=== PATIENT | female | born 1990 | race American Indian/Alaskan Native ===

== ENCOUNTER 2019-02-17 20:27 | Emergency (ER) | payer BC, MEDICAID ==
--- NOTE | 2019-02-17 21:37 | Event Note ---
ED Screening Note ED Screening Note: states she has pain in the epigastrium and chest that began today intermittent feels like a pressure no N/V/d no fever no SOB no cough LNMP: 02/13/19, tubal ligation no PMHx no allergies to meds This initial assessment/diagnostic orders/clinical plan/treatment(s) is/are subject to change based on patients health status, clinical progression and re- assessment by fellow clinical providers in the ED. Further treatment and workup at subsequent clinical providers discretion. Patient/guardian urged not to elope from the ED as their condition may be serious if not clinically assessed and managed. Initial orders include: CXR
[2019-02-17] MEDS ORDERED: ASPIRIN 325 MG TAB PO ONE (22:32)
--- NOTE | 2019-02-17 22:41 | XRay Report ---
ABDOMEN 3 VIEW(S) INDICATION: Chest and abdominal pain. Dyspnea. COMPARISON: None available. FINDINGS: Bowel gas pattern: No significant abnormality. Free air: None seen. Stones: None seen. Chest: No acute findings. Additional Findings: No additional significant findings. IMPRESSION: No significant abnormality of the abdomen. Signer Name: Mayco Way MD Signed: 02/17/2019 10:36 PM Workstation Name: [id number]
[2019-02-18 00:10] LABS: Basophils % (Auto) 0.5 % (0.0-1.8); Eosinophils % (Auto) 1.7 % (0.0-4.3); Hematocrit 27.7 % (30.3-42.9); Hemoglobin 9.5 gm/dl (10.1-14.3); Lymphocytes # (Auto) 1.2 K/mm3 (1.2-5.4); Lymphocytes % (Auto) 40.4 % (13.4-35.0); Mean Corpuscular HGB Conc 34 % (30-34); Mean Corpuscular Volume 88 fl (79-97); Monocytes # (Auto) 0.2 K/mm3 (0.0-0.8); Monocytes % (Auto) 7.2 % (0.0-7.3); Platelet Count 240 K/mm3 (140-440); Red Blood Count 3.15 M/mm3 (3.65-5.03); Red Cell Distribution Width 13.3 % (13.2-15.2)
[2019-02-18 00:13] LABS: INR 1.04 (0.87-1.13)
[2019-02-18 00:14] LABS: Partial Thromboplastin Time 30.1 Sec. (24.2-36.6)
[2019-02-18 00:27] LABS: Alanine Aminotransferase 627 units/L (7-56); Albumin 3.8 g/dL (3.9-5); BUN/Creatinine Ratio 23; Blood Urea Nitrogen 9 mg/dL (7-17); Calcium 8.7 mg/dL (8.4-10.2); Hemolysis Index 0
--- NOTE | 2019-02-18 02:11 | Cat Scan Report ---
CTA CHEST WITH IV CONTRAST INDICATION: Chest pain. Shortness of breath. TECHNIQUE: Axial CT images were obtained through the chest after injection of 100 MLO Omnipaque 350 IV contrast. 3 plane MIP reconstructions were produced. All CT scans at this location are performed using CT dose reduction for ALARA by means of automated exposure control. COMPARISON: Acute abdominal series from 02/17/2019. FINDINGS: PULMONARY ARTERIES: Well-opacified without distinct thromboemboli. AORTA AND ARTERIES: No significant abnormality. MEDIASTINUM: No significant abnormality of the heart or other mediastinal structures. LUNGS: There is mild left lower lobe atelectasis. The lungs are otherwise clear. No pneumothorax or p leural effusion. ADDITIONAL FINDINGS: None. UPPER ABDOMEN: There is moderate to severe left hydroureteronephrosis without visualization of an obs tructive stone or mass. A simple appearing right lower renal pole cyst measures 9 mm. BONES: No significant osseous abnormality. IMPRESSION: 1. No CT evidence of a pulmonary artery thromboembolism or other acute abnormality of the chest. 2. Partially visualized moderate to severe left hydroureteronephrosis without a clear etiology. Signer Name: Mayco Way MD Signed: 02/18/2019 2:07 AM Workstation Name: [email or web address]
--- NOTE | 2019-02-18 03:13 | Emergency Department Report ---
ED Chest Pain HPI - General Chief Complaint: Chest Pain Stated Complaint: CHEST PAIN & TIGHTENING/EMELIA Time Seen by Provider: 02/17/19 21:35 Source: patient Mode of arrival: Ambulatory Limitations: No Limitations - History of Present Illness Initial Comments: Patient is a 28-year-old female with no past medical history who is 10 weeks presents to the ED with compound of acute onset persistent intermittent sharp substernal chest pain for the last 12 hours. Patient states that she has had 3 major episodes of substernal chest pain that lasted about 15 minutes which resolved momentarily. Patient states that the pain when present appears to radiate to her mid posterior thoracic area or epigastric area. Patient also complaints of one episode of nausea and vomiting. Patient denies shortness of breath, dizziness, abdominal pain, palpitations, syncope, neck pain, dysuria, urinary frequency and urgency, hematuria, vaginal bleeding, vaginal discharge, fever, chills, headache or diarrhea and diaphoresis. MD Complaint: chest pain (substernal intermittent chest pain) -: Sudden, hour(s) (12) Onset: during rest Pain Location: substernal Pain Radiation: back (mid-posterior thoracic area), abdomen (eoigastric area) Severity: severe Severity scale (0 -10): 7 Quality: aching, sharp Consistency: intermittent Improves With: medication-other (NSAIDs) Worsens With: nothing Context: recent surgery (10 weeks ago had and BTL) re: nausea, vomting. denies: diaphoresis, dyspnea, sense of impending doom, other Other Symptoms: denies: cough, fever, syncope, rash, acid taste in mouth, leg swelling, palpitations, burping, other Treatments Prior to Arrival: other (Aleve) Aspirin use within the Past 7 Days: (0) No - Related Data On Oral Contraceptives: No Previous Rx's Medication Instructions Recorded Last Taken Type levoFLOXacin [Levaquin TAB] 500 mg PO QDAY #5 tablet 08/24/15 Unknown Rx Famotidine [Pepcid] 20 mg PO Q12H #60 tablet 02/18/19 Unknown Rx Ketorolac [Toradol] 10 mg PO Q8H PRN #20 tablet 02/18/19 Unknown Rx Ondansetron [Zofran Odt] 4 mg PO Q6HR PRN #20 tab.rapdis 02/18/19 Unknown Rx Allergies Allergy/AdvReac Type Severity Reaction Status Date / Time No Known Allergies Allergy Unverified 08/06/15 15:47 Heart Score - HEART Score History: Slightly suspicious EKG: Normal Age: < 45 Risk factors: No known risk factors Troponin: < normal limit HEART Score: 0 - Critical Actions Critical Actions: 0-3 pts:0.9-1.7%risk of adverse cardiac event.Candidate for discharge ED Review of Systems ROS: Stated complaint: CHEST PAIN & TIGHTENING/EMELIA Other details as noted in HPI Constitutional: denies: chills, fever Eyes: denies: eye pain, eye discharge, vision change ENT: denies: ear pain, throat pain Respiratory: denies: cough, shortness of breath, SOB with exertion, SOB at rest, wheezing Cardiovascular: chest pain (substernal ). denies: palpitations, dyspnea on exertion, syncope, paroxysmal nocturnal dyspnea Endocrine: no symptoms reported Gastrointestinal: nausea, vomiting. denies: abdominal pain, diarrhea, hematochezia Genitourinary: denies: urgency, dysuria, frequency, hematuria, discharge Musculoskeletal: denies: back pain, joint swelling, arthralgia, myalgia Skin: denies: rash, lesions Neurological: denies: headache, weakness, paresthesias Psychiatric: denies: anxiety, depression Hematological/Lymphatic: denies: easy bleeding, easy bruising ED Past Medical Hx - Past Medical History Previous Medical History?: No Hx Hypertension: No Hx Congestive Heart Failure: No Hx Diabetes: No Hx Renal Disease: No Hx Asthma: No Hx COPD: No - Surgical History Additional Surgical History: Tubal Ligation - Social History Smoking Status: Never Smoker Substance Use Type: None - Medications Home Medications: Home Medications Medication Instructions Recorded Confirmed Last Taken Type levoFLOXacin [Levaquin TAB] 500 mg PO QDAY #5 tablet 08/24/15 Unknown Rx Famotidine [Pepcid] 20 mg PO Q12H #60 tablet 02/18/19 Unknown Rx Ketorolac [Toradol] 10 mg PO Q8H PRN #20 tablet 02/18/19 Unknown Rx Ondansetron [Zofran Odt] 4 mg PO Q6HR PRN #20 tab.rapdis 02/18/19 Unknown Rx ED Physical Exam - General Limitations: No Limitations General appearance: alert, in no apparent distress - Head Head exam: Present: atraumatic, normocephalic, normal inspection - Eye Eye exam: Present: normal appearance, PERRL, EOMI. Absent: scleral icterus, conjunctival injection, periorbital swelling, periorbital tenderness Pupils: Present: normal accommodation - ENT ENT exam: Present: normal exam, normal orophraynx, mucous membranes moist, TM's normal bilaterally, normal external ear exam - Neck Neck exam: Present: normal inspection, full ROM - Respiratory Respiratory exam: Present: normal lung sounds bilaterally, chest wall tenderness (palpable diffuse chest wall tenderness). Absent: respiratory distress, whe ezes, rales, stridor - Cardiovascular Cardiovascular Exam: Present: regular rate, normal rhythm, normal heart sounds. Absent: systolic murmur, diastolic murmur, rubs, gallop - GI/Abdominal GI/Abdominal exam: Present: soft, normal bowel sounds. Absent: distended, tenderness, rebound, hyperactive bowel sounds, hypoactive bowel sounds, organomegaly, mass - Extremities Exam Extremities exam: Present: normal inspection, full ROM, normal capillary refill - Back Exam Back exam: Present: normal inspection, full ROM. Absent: tenderness, muscle spasm, paraspinal tenderness - Neurological Exam Neurological exam: Present: alert, oriented X3, CN II-XII intact, normal gait, reflexes normal - Psychiatric Psychiatric exam: Present: normal affect, normal mood - Skin Skin exam: Present: warm, dry, intact, normal color. Absent: rash ED Course Vital Signs 02/17/19 02/17/19 20:35 20:36 Temperature 98.4 F Pulse Rate 83 Respiratory 18 Rate Blood Pressure 102/55 O2 Sat by Pulse 97 Oximetry DARRION score - Darrion Score Age > 65: (0) No Aspirin use within the Past 7 Days: (0) No 3 or more CAD Risk Factors: (0) No 2 or more Angina events in past 24 hrs: (0) No Known CAD with more than 50% Stenosis: (0) No Elevated Cardiac Markers: (0) No ST Deviation Greater than 0.5mm: (0) No DARRION Score: 0 ED Medical Decision Making - Lab Data Result diagrams: 02/17/19 23:50 02/17/19 23:50 - Radiology Data Radiology results: report reviewed, image reviewed Findings [facility] [address] [place] [address] Ultrasound Report Signed Patient: CARO WHITE MR#: [id number] : 1990 Acct:[id number] Age/Sex: 28 / F ADM Date: 02/17/19 Loc: ED Attending Dr: Ordering Physician: SCOTT CHAMBERLAIN Date of Service: 02/18/19 Procedure(s): US abdomen limited Accession Number(s): [id number] cc: SCOTT CHAMBERLAIN ULTRASOUND ABDOMEN, LIMITED (RIGHT UPPER QUADRANT) INDICATION: elevated LFTs. COMPARISON: None available. FINDINGS: Pancreas: Visualized portion shows no significant abnormality. Liver: Normal in size with generalized increased echotexture. No additional significant abnormality. Gallbladder: Numerous stones are seen without an additional significant abnormality. Sonographic Flowers's sign: Negative. Bile ducts: No significant abnormality. Common Bile Duct measures 2 mm. Free fluid: None. Additional Findings: None. IMPRESSION: 1. Cholelithiasis without sonographic evidence of acute cholecystitis. 2. Increased hepatic echotexture is most commonly seen in the setting of steatosis. Signer Name: Mayco Way MD Signed: 02/18/2019 3:28 AM Workstation Name: [id number] Transcribed By: [place] Dictated By: Mayco Way MD Electronically Authenticated By: Mayco Way MD Signed Date/Time: 02/18/19327 DD/ 5 TD/TT: Findings [facility] [address] [place] [address] Cat Scan Report Signed Patient: CARO WHITE MR#: [id number] : 1990 Acct:[id number] Age/Sex: 28 / F ADM Date: 02/17/19 Loc: ED Attending Dr: Ordering Physician: SCOTT CHAMBERLAIN Date of Service: 02/18/19 Procedure(s): CT angio chest Accession Number(s): [id number] cc: SCOTT CHAMBERLAIN CTA CHEST WITH IV CONTRAST INDICATION: Chest pain. Shortness of breath. TECHNIQUE: Axial CT images were obtained through the chest after injection of 100 MLO Omnipaque 350 IV contrast. 3 plane MIP reconstructions were produced. All CT scans at this location are performed using CT dose reduction for ALARA by means of automated exposure control. COMPARISON: Acute abdominal series from 02/17/2019. FINDINGS: PULMONARY ARTERIES: Well-opacified without distinct thromboemboli. AORTA AND ARTERIES: No significant abnormality. MEDIASTINUM: No significant abnormality of the heart or other mediastinal str uctures. LUNGS: There is mild left lower lobe atelectasis. The lungs are otherwise clear. No pneumothorax or pleural effusion. ADDITIONAL FINDINGS: None. UPPER ABDOMEN: There is moderate to severe left hydroureteronephrosis without visualization of an obstructive stone or mass. A simple appearing right lower renal pole cyst measures 9 mm. BONES: No significant osseous abnormality. IMPRESSION: 1. No CT evidence of a pulmonary artery thromboembolism or other acute abnormality of the chest. 2. Partially visualized moderate to severe left hydroureteronephrosis without a clear etiology. Signer Name: Mayco Way MD Signed: 02/18/2019 2:07 AM Workstation Name: [id number] Transcribed By: MN Dictated By: Mayco Way MD Electronically Authenticated By: Mayco Way MD Signed Date/Time: 02/18/19206 DD/ 1 TD/TT: - Medical Decision Making This is a 28-year-old female who presented to the ED with chest pain that radiates to the mid posterior thoracic area and epigastric area with nausea and vomiting for 12 hours intermittent. In the ED, patient is alert and oriented 3 and is not in distress. Lab test results were reviewed and show leukopenia of 2.9, elevated LFTs, with AST of 1325, and ALT of 627 with alkaline phosphatase of 150; and a d-dimer of 562.39. Chest x-ray shows no acute pulmonary commodities. Rezulin lab test results including urinalysis are nonactionable including troponin levels. CTA chest shows no evidence of PE. Gallbladder ultrasound showed cholelithiasis without sonographic evidence of cholecystitis. Patient was treated for pain and on reevaluation, patient's pain is well controlled with medications. Patient was discharged home on medications for pain and given a referral to the general surgeon health information manager Dr. Burton, for follow- up. Patient was advised to contact Dr. Burton's office first thing in the morning to schedule follow-up appointment for her cholelithiasis. Patient was otherwise advised return to the ED immediately if symptoms get worse. - Differential Diagnosis PE; CAD; Pneumonia; Gallstones; cholecystitis; GERD Critical care attestation.: If time is entered above; I have spent that time in minutes in the direct care of this critically ill patient, excluding procedure time. ED Disposition Clinical Impression: Substernal chest pain, Nausea and vomiting in adult, Acute epigastric pain, Cholelithiasis without cholecystitis Disposition: TO HOME OR SELFCARE Is pt being admited?: No Does the pt Need Aspirin: No Condition: Stable Instructions: Chest Pain (ED), Biliary Colic (ED), Cholelithiasis (ED), Acute Nausea and Vomiting (ED) Additional Instructions: Take medication with food, drink plenty of fluids and follow-up with Dr. Burton, the the general surgeon on-call for further evaluation. Please contact Dr. Burton's office first thing in the morning to schedule follow-up appointment for outpatient lap cholecystectomy. Return to the ED immediately if symptoms get worse. Prescriptions: Famotidine [Pepcid] 20 mg PO Q12H #60 tablet Ketorolac [Toradol] 10 mg PO Q8H PRN #20 tablet PRN Reason: Pain Ondansetron [Zofran Odt] 4 mg PO Q6HR PRN #20 tab.rapdis PRN Reason: Nausea Referrals: MACKENZIE BURTON MD [Staff Physician] - JUSTIN Forms: Work/School Release Form(ED) Time of Disposition: 06:45 Print Language: HEBREW
--- NOTE | 2019-02-18 03:33 | Ultrasound Report ---
ULTRASOUND ABDOMEN, LIMITED (RIGHT UPPER QUADRANT) INDICATION: elevated LFTs. COMPARISON: None available. FINDINGS: Pancreas: Visualized portion shows no significant abnormality. Liver: Normal in size with generalized increased echotexture. No additional significant abnormality. Gallbladder: Numerous stones are seen without an additional significant abnormality. Sonographic Mur phy's sign: Negative. Bile ducts: No significant abnormality. Common Bile Duct measures 2 mm. Free fluid: None. Additional Findings: None. IMPRESSION: 1. Cholelithiasis without sonographic evidence of acute cholecystitis. 2. Increased hepatic echotexture is most commonly seen in the setting of steatosis. Signer Name: Mayco Way MD Signed: 02/18/2019 3:28 AM Workstation Name: [id number]
[2019-02-18 05:47] LABS: Color,Urine Yellow (Yellow)
[2019-02-18 05:48] LABS: Bilirubin,Urine NEG (Negative); Blood,Urine NEG (Negative); Protein,Urine <15 mg/dL mg/dL (Negative)
[2019-02-18 07:00] VITALS: BP 114/67
== END 2019-02-18 06:59 | disposition home or self-care (01) ==
LOC: ED 20:27
DX: K80.20 Calculus of gallbladder without cholecystitis without obstruction (principal); R07.89 Other chest pain; R10.13 Epigastric pain; Z98.51 Tubal ligation status; Z79.899 Other long term (current) drug therapy
CPT/HCPCS: 36415; 71275; 74022; 76705; 80053; 81001; 83690; 84484; 85025; 85379; 85610; 85730; 93005; 93010; 99284; Q9967